=== PATIENT | female | born 1975 | race Caucasian/White ===

== ENCOUNTER 2016-07-05 16:15 | Inpatient (IN) | payer OTHER ==
[~2016-07-05] VITALS: Ht 177.8 cm; Wt 74.8 kg
[2016-07-05 16:16] VITALS: BP 172/81; PULSE 93; RESP 17; TEMP 98.3; O2SAT 97
[2016-07-05] MEDS ORDERED: LORazepam 2 MG/ML VIAL (FOR ER USE) IVP ONE (16:45)
[2016-07-05 17:07] LABS: BASOPHILS # (AUTO) 0.1 K/uL (0.0-0.2); BASOPHILS % (AUTO) 1.4 % (0.0-2.0); HEMATOCRIT 33.7 % (36-48); HEMOGLOBIN 11.6 g/dL (12.0-16.0); LYMPHOCYTES # (AUTO) 0.9 K/uL (1.0-5.5); MEAN CORPUSCULAR HEMOGLOBIN 30 pg (27-31); MEAN CORPUSCULAR HGB CONC 34 % (32-36); MEAN CORPUSCULAR VOLUME 86 fL (79.0-98.0); MONOCYTES # (AUTO) 0.3 K/uL (0.0-1.0); MONOCYTES % (AUTO) 4.1 % (1.7-9.3); NEUTROPHILS # (AUTO) 6.3 K/uL (1.8-7.7); NEUTROPHILS % (AUTO) 82.5 % (40.0-70.0); RED BLOOD CELL COUNT(AUTO) 3.92 MIL/uL (4.2-6.2); RED CELL DISTRIBUTION WIDTH 12.8 % (9.0-15.0); WHITE BLOOD COUNT (AUTO) 7.6 K/uL (4.8-10.8)
[2016-07-05 17:19] LABS: PLATELET COUNT (AUTO) 70 K/uL (130-430)
[2016-07-05 17:29] LABS: INR 1.2 (0.8-1.2); PROTHROMBIN TIME 13.2 SECS (9.5-12.5)
[2016-07-05] MEDS ORDERED: NACL 0.9% 1,000 ML IV ONE (17:30)
[2016-07-05 17:34] LABS: ANION GAP 13 (5-15); CALCIUM 9.5 mg/dL (8.4-11.0); GLUCOSE 233 mg/dL (70-99)
[2016-07-05 17:35] LABS: CREATININE 0.98 mg/dL (0.55-1.30); GFR AFRICAN AMERICAN 81 mL/min (>90); UREA NITROGEN, BLOOD 30 mg/dL (8-21)
[2016-07-05 17:36] LABS: POTASSIUM 2.4 mmol/L (3.5-5.1); SODIUM SERUM 119 mmol/L (136-145)
[2016-07-05 17:37] LABS: CHLORIDE 65 mmol/L (98-107)
[2016-07-05 17:38] LABS: ALANINE AMINOTRANSFERASE 62 U/L (12-78); ALBUMIN 4.5 g/dL (3.4-4.8); ASPARTATE AMINOTRANSFERASE 113 U/L (10-37); FREE T4 (FREE THYROXINE) 0.6 ng/dL (0.6-1.6); TOTAL BILIRUBIN 4.4 mg/dL (0.0-1.0); TOTAL PROTEIN, SERUM 8.2 g/dL (6.4-8.3)
[2016-07-05 17:39] LABS: ALCOHOL, BLOOD < 3 mg/dL (<10); PHENYTOIN (DILANTIN) 0.8 ug/mL (10.0-20.0)
[2016-07-05 18:01] LABS: BILIRUBIN,URINE 2+ (NEGATIVE); CLARITY/URINE SL CLOUDY (CLEAR); COLOR,URINE AMBER (YELLOW); GLUCOSE,URINE NEGATIVE (NEGATIVE); KETONES,URINE 1+ (NEGATIVE); LEUKOCYTE ESTERASE ,URINE NEGATIVE (NEGATIVE); NITRITE, URINE POSITIVE (NEGATIVE); PROTEIN URINE 2+ (NEGATIVE)
[2016-07-05 18:10] LABS: BLOOD, URINE TRACE (NEGATIVE)
[2016-07-05] MEDS ORDERED: POTASSIUM CHLORIDE 40 MEQ in D5W 250 ML IV ONE (18:30)
[2016-07-05] MEDS ORDERED: POTASSIUM CHLORIDE 20 MEQ TAB.PRT.SR PO ONE (18:30)
[2016-07-05] MEDS ORDERED: cefTRIAXone 1 GM IVPB PREMIX 50 ML IV ONE (18:30)
[2016-07-05 18:31] LABS: BACTERIA,URINE FEW /HPF (None Seen); RBC,URINE 0-3 /HPF (0-3); WBC,URINE 0-3 /HPF (0-3)
[2016-07-05 18:32] LABS: URINE AMORPHOUS URATE 1+ /HPF (None Seen)
[2016-07-05 18:33] LABS: MUCUS,URINE 3+ /LPF (None Seen)
[2016-07-05 18:37] LABS: BARBITURATE, URINE NEGATIVE (NEG <=200); BENZODIAZEPINE, URINE NEGATIVE (NEG <=150); CANNABINOID, URINE NEGATIVE (NEG <=50); COCAINE, URINE NEGATIVE (NEG <=150); METHAMPHETAMINES SCREEN,URINE NEGATIVE (NEG <=500); OPIATE, URINE NEGATIVE (NEG <=100); PHENCYCLIDINE SCREEN,URINE NEGATIVE (NEG <=25); UR TRICYCLIC ANTIDEPRESSANTS NEGATIVE (NEG <=300); URINE AMPHETAMINE NEGATIVE (NEG <=500); URINE METHADONE NEGATIVE (NEG <=200); URINE OXYCODONE SCREEN NEGATIVE (NEG <=100); URINE PROPOXYPHENE SCREEN NEGATIVE (NEG <=300)
[2016-07-05] MEDS ORDERED: PHENYTOIN SODIUM INJ 1,000 MG in NS 100 ML IV ONE (18:45)
[2016-07-05] MEDS ORDERED: PHENYTOIN SODIUM 250 MG/5 ML INJ. VIAL IV ONE ×2 (19:11→19:26)
[2016-07-05 19:40] VITALS: BP 109/64; PULSE 110; RESP 28; TEMP 99.2; O2SAT 89
[2016-07-05 20:00] VITALS: BP 112/68; PULSE 110; RESP 23; TEMP 99.2; O2SAT 95
[2016-07-05 21:00] VITALS: BP 103/85; PULSE 104; RESP 20; O2SAT 91
[2016-07-05] MEDS ORDERED: INSULIN ASPART 100 UNITS/ML, 10 ML VIAL (NovoLOG) SUBCUT PRN (21:15)
[2016-07-05 21:23] LABS: ABG TOTAL HEMOGLOBIN 11.9 G/dL (12.0-18.0); BLOOD GAS BASE EXCESS 20.1 mmol/L (-3.0-3.0); BLOOD GAS PH 7.601 (7.350-7.450)
[2016-07-05 21:24] LABS: BLOOD GAS HHB 4.8 % (0.0-6.0)
[2016-07-05 22:00] VITALS: BP 103/63; PULSE 108; RESP 21; O2SAT 97
[2016-07-05 22:04] LABS: CREATININE 0.75 mg/dL (0.55-1.30)
[2016-07-05 22:18] LABS: POTASSIUM 2.6 mmol/L (3.5-5.1)
[2016-07-05 23:00] VITALS: BP 113/91; PULSE 102; RESP 16; O2SAT 97
[2016-07-06] VITALS (18 sets, daily range): BP systolic 89–123; BP diastolic 50–77; PULSE 84–105; RESP 11–33; TEMP 97.9–98.9; O2SAT 93–100
[2016-07-06] MEDS ORDERED: POTASSIUM CHLORIDE 20 MEQ/PKT PACKET PO ONE (01:00)
[2016-07-06] MEDS ORDERED: POTASSIUM CHLORIDE 30 MEQ in NS 250 ML IV ONE (01:00)
[2016-07-06] MEDS ORDERED: POTASSIUM CHLORIDE 20 MEQ TAB.PRT.SR ONE (01:10)
[2016-07-06] MEDS ORDERED: KCL 40 mEq in 100 mL (PREMIX) 100 ML IV ONE (01:24)
[2016-07-06] MEDS: KCL 20 mEq in NS 1000 mL 1,000 ML IV SCH ×2 (05:53→18:16)
[2016-07-06 06:42] LABS: BASOPHILS % (AUTO) 0.1 % (0.0-2.0); EOSINOPHILS % (AUTO) 0.1 % (0.0-4.0); HEMATOCRIT 30.4 % (36-48); HEMOGLOBIN 10.2 g/dL (12.0-16.0); LYMPHOCYTES # (AUTO) 1.1 K/uL (1.0-5.5); LYMPHOCYTES % (AUTO) 17.9 % (20.5-51.5); MEAN CORPUSCULAR HEMOGLOBIN 29 pg (27-31); MEAN CORPUSCULAR HGB CONC 34 % (32-36); MEAN CORPUSCULAR VOLUME 85 fL (79.0-98.0); MONOCYTES # (AUTO) 0.3 K/uL (0.0-1.0); MONOCYTES % (AUTO) 5.5 % (1.7-9.3); NEUTROPHILS # (AUTO) 4.6 K/uL (1.8-7.7); NEUTROPHILS % (AUTO) 76.4 % (40.0-70.0); RED BLOOD CELL COUNT(AUTO) 3.56 MIL/uL (4.2-6.2); RED CELL DISTRIBUTION WIDTH 12.7 % (9.0-15.0)
[2016-07-06 07:02] LABS: PLATELET COUNT (AUTO) 55 K/uL (130-430)
[2016-07-06 07:22] LABS: ALBUMIN 3.7 g/dL (3.4-4.8); CALCIUM 8.5 mg/dL (8.4-11.0); CREATININE 0.68 mg/dL (0.55-1.30); POTASSIUM 3.3 mmol/L (3.5-5.1); TOTAL BILIRUBIN 2.9 mg/dL (0.0-1.0); TOTAL PROTEIN, SERUM 7.2 g/dL (6.4-8.3)
[2016-07-06] MEDS ORDERED: POTASSIUM CHLORIDE 10 MEQ TAB.PRT.SR PO ONE (08:00)
[2016-07-06] MEDS ORDERED: MAGNESIUM SULFATE 1 GM in NS 100 ML IV ONE (08:30)
[2016-07-06] MEDS: FAMOTIDINE 20 MG TABLET PO SCH (09:46)
[2016-07-06] MEDS ORDERED: THIAMINE HCL 100 MG TABLET PO ONE (12:00)
[2016-07-06] MEDS ORDERED: FOLIC ACID 1 MG TABLET PO ONE (12:00)
[2016-07-06] MEDS ORDERED: DIVALPROEX SODIUM 500 MG TABLET( DEPAKOTE) PO ONE (12:45)
[2016-07-06] MEDS: ACETAMINOPHEN 325 MG TABLET PO PRN (13:33)
[2016-07-06] MEDS ORDERED: IBUPROFEN 400 MG TABLET PO ONE (14:45)
[2016-07-06 16:22] LABS: CHLORIDE,URINE RANDOM 21 mmol/L (55-125); POTASSIUM,URINE RANDOM 25 mmol/L (12-75); URINE SODIUM, RANDOM 10 mmol/L (40-220)
[2016-07-06] MEDS: LORazepam 2 MG/ML VIAL IVP PRN (18:16)
[2016-07-06] MEDS ORDERED: DIVALPROEX SODIUM 500 MG TABLET( DEPAKOTE) PO SCH (21:00)
[2016-07-06] MEDS: PHENYTOIN 100 MG CAPSULE PO SCH (21:41)
[2016-07-07] VITALS: BP 116/70; PULSE 84; RESP 17; TEMP 97.4; O2SAT 95
[2016-07-07] MEDS: KCL 20 mEq in NS 1000 mL 1,000 ML IV SCH (04:02)
[2016-07-07] MEDS: LORazepam 2 MG/ML VIAL IVP PRN ×4 (04:03→17:36)
[2016-07-07 05:31] VITALS: BP 109/71; PULSE 68; RESP 18; TEMP 97.1; O2SAT 96
[2016-07-07 07:53] LABS: BASOPHILS % (AUTO) 0.5 % (0.0-2.0); EOSINOPHILS # (AUTO) 0.1 K/uL (0.0-0.4); EOSINOPHILS % (AUTO) 1.6 % (0.0-4.0); HEMATOCRIT 30.6 % (36-48); HEMOGLOBIN 10.3 g/dL (12.0-16.0); LYMPHOCYTES # (AUTO) 1.3 K/uL (1.0-5.5); LYMPHOCYTES % (AUTO) 33.8 % (20.5-51.5); MEAN CORPUSCULAR HEMOGLOBIN 29 pg (27-31); MEAN CORPUSCULAR HGB CONC 34 % (32-36); MEAN CORPUSCULAR VOLUME 86 fL (79.0-98.0); MONOCYTES # (AUTO) 0.3 K/uL (0.0-1.0); MONOCYTES % (AUTO) 7.6 % (1.7-9.3); NEUTROPHILS # (AUTO) 2.2 K/uL (1.8-7.7); NEUTROPHILS % (AUTO) 56.5 % (40.0-70.0); RED BLOOD CELL COUNT(AUTO) 3.54 MIL/uL (4.2-6.2); RED CELL DISTRIBUTION WIDTH 12.9 % (9.0-15.0); WHITE BLOOD COUNT (AUTO) 3.9 K/uL (4.8-10.8)
[2016-07-07 08:18] LABS: ALBUMIN 3.1 g/dL (3.4-4.8); BILIRUBIN,DIRECT 0.4 mg/dL (0.0-0.3); CALCIUM 8.1 mg/dL (8.4-11.0); CREATININE 0.61 mg/dL (0.55-1.30); POTASSIUM 3.2 mmol/L (3.5-5.1); TOTAL PROTEIN, SERUM 6.5 g/dL (6.4-8.3)
[2016-07-07 08:23] VITALS: BP 106/75; PULSE 87; RESP 17; TEMP 98.2; O2SAT 96
[2016-07-07] MEDS: THIAMINE HCL 100 MG TABLET PO SCH (08:49)
[2016-07-07] MEDS: FAMOTIDINE 20 MG TABLET PO SCH (08:49)
[2016-07-07] MEDS: FOLIC ACID 1 MG TABLET PO SCH (08:49)
[2016-07-07] MEDS: ACETAMINOPHEN 325 MG TABLET PO PRN (08:58)
[2016-07-07 09:58] LABS: PLATELET COUNT (AUTO) 71 K/uL (130-430)
[2016-07-07] MEDS ORDERED: POTASSIUM CHLORIDE 10 MEQ TAB.PRT.SR PO ONE (11:45)
[2016-07-07] MEDS ORDERED: IBUPROFEN 400 MG TABLET PO PRN (11:45)
[2016-07-07 12:00] VITALS: BP 111/63; PULSE 96; RESP 16; TEMP 99.2; O2SAT 97
[2016-07-07 16:00] VITALS: BP 108/52; PULSE 99; RESP 16; TEMP 98.1; O2SAT 95
[2016-07-07] MEDS: PHENYTOIN 100 MG CAPSULE PO SCH (20:57)
[2016-07-08 00:15] VITALS: BP 112/63; PULSE 89; RESP 17; TEMP 98.4; O2SAT 97
[2016-07-08 05:12] VITALS: BP 116/54; PULSE 88; RESP 17; TEMP 98.3; O2SAT 97
[2016-07-08 07:05] LABS: CALCIUM 9.5 mg/dL (8.4-11.0); CREATININE 0.61 mg/dL (0.55-1.30); POTASSIUM 3.6 mmol/L (3.5-5.1)
[2016-07-08 08:00] VITALS: BP 114/70; PULSE 78; RESP 20; TEMP 98.1; O2SAT 100
[2016-07-08] MEDS ORDERED: GABAPENTIN 100 MG CAPSULE PO SCH (09:00)
[2016-07-08] MEDS: LORazepam 2 MG/ML VIAL IVP PRN ×2 (09:36→13:41)
[2016-07-08] MEDS: FOLIC ACID 1 MG TABLET PO SCH (09:39)
[2016-07-08] MEDS: FAMOTIDINE 20 MG TABLET PO SCH (09:39)
[2016-07-08] MEDS: THIAMINE HCL 100 MG TABLET PO SCH (09:41)
[2016-07-08 12:58] VITALS: BP 118/47; PULSE 87; RESP 17; TEMP 98.7; O2SAT 99
[2016-07-08] MEDS: ACETAMINOPHEN 325 MG TABLET PO PRN (13:47)
[2016-07-08] MEDS ORDERED: GABA-529 PO (15:26)
[2016-07-08] MEDS ORDERED: PHEN100C4 PO (15:27)
[2016-07-08] MEDS ORDERED: FOLI-43 PO (15:28)
[2016-07-08] MEDS ORDERED: THIA100T13 PO (15:28)
[2016-07-08] MEDS ORDERED: FAMO20TA8 PO (15:29)
[2016-07-08 15:58] VITALS: BP 118/47; PULSE 87; RESP 17; TEMP 98.7; O2SAT 99
== END 2016-07-08 16:40 | disposition home or self-care (01) | DRG 100 ==
LOC: SED 16:15 → SIC 18:51 → SMU 07-06 17:20 → STU 07-06 22:10 → SMU 07-07 10:00
PROVIDERS: ADMIT Internal Medicine; ATTEND Internal Medicine
DX: G40.409 Other generalized epilepsy and epileptic syndromes, not intractable, without status epilepticus (principal); G93.41 Metabolic encephalopathy; E87.1 Hypo-osmolality and hyponatremia; E87.3 Alkalosis; E87.6 Hypokalemia; E86.0 Dehydration; D69.6 Thrombocytopenia, unspecified; F43.10 Post-traumatic stress disorder, unspecified; F10.10 Alcohol abuse, uncomplicated; R74.8 Abnormal levels of other serum enzymes; V89.2XXA Person injured in unspecified motor-vehicle accident, traffic, initial encounter
CPT/HCPCS: 36415; 36600; 70450-TC; 71010; 80048; 80053; 80076; 80185-TC; 80307; 81000-TC; 82140-TC; 82435-TC; 82570-TC; 82803-TC; 82962; 83605; 83735-TC; 83880; 84302-TC; 84439; 84484; 84999-TC; 85025; 85610-TC; 87040-TC; 87081; 87086; 93005; 96365; 99285; G0482; J0696; J1165; J1815; J2060; J3475; J3480; J7030; J7050; J7060